=== PATIENT | male | born 1995 | race Caucasian/White ===

== ENCOUNTER 2023-07-15 20:06 | Emergency (ER) | payer OTHER ==
[2023-07-15] MEDS ORDERED: Ketorolac 30 MG/ML SDV IM ONE (21:04)
[2023-07-16 01:25] VITALS: BP 115/89; PULSE 98
== END 2023-07-15 23:06 | disposition home or self-care (01) ==
LOC: FB.ED 20:06
DX: U07.1 COVID-19 (principal); M54.6 Pain in thoracic spine; M79.18 Myalgia, other site; F17.210 Nicotine dependence, cigarettes, uncomplicated
CPT/HCPCS: 87635; 96372; 99283; J1885; U0002